=== PATIENT | female | born 1970 | race American Indian/Alaskan Native ===

== ENCOUNTER 2017-01-04 08:34 | Day surgery (SDC) | payer OTHER ==
[2016-12-31 10:15] VITALS: BMI 23.6
[2017-01-04] MEDS ORDERED: Lidocaine 1% Inj (20ml) ONE (11:57)
[2017-01-04] MEDS ORDERED: ceFAZolin 1 gm FROZEN Premix 1 GM/50 ML ML IVPB ONE (11:57)
[2017-01-04] MEDS ORDERED: Bupivacaine HCl 0.25% PF (10 ml) Inj ONE (11:57)
[2017-01-04] MEDS ORDERED: Lactated Ringer's 1,000 ML IV ONE (12:15)
[2017-01-04] MEDS ORDERED: Midazolam 2 MG/2 ML VIAL ONE (12:24)
[2017-01-04] MEDS ORDERED: Propofol 10 mg/ml Inj (20 ML) ONE ×2 (12:24→12:41)
[2017-01-04] MEDS ORDERED: Oxycodone/Acetaminophen 5/325 mg Tab PO PRN (13:08)
[2017-01-04] MEDS ORDERED: HYDROmorphone 1 mg/ml ISec ONE (13:13)
--- NOTE | 2017-01-04 14:15 | OP ---
PROCEDURE DATE: 01/04/2017 PREOPERATIVE DIAGNOSIS: Mass of the left breast. POSTOPERATIVE DIAGNOSIS: Mass of the left breast. PROCEDURE PERFORMED: Excisional biopsy mass of the left breast with adjacent tissue transfer closure . SURGEON: Elton Tejada MD ANESTHESIA: General. ESTIMATED BLOOD LOSS: 20 mL. POSTOPERATIVE CONDITION: Stable. PROCEDURE: The patient was taken to the operating room and placed in the supine position. An ellipt ical incision was made surrounding the left breast mass. It was dissected into the fascia and remove d. Bleeding was controlled using the Bovie. The mass was marked with a silk and sent for a specimen . Generous tissue flaps were raised using the Bovie and a greater than 30 square cm adjacent tissue transfer closure was performed by mobilizing the breast flaps and using multiple layers of Monocryl, subcuticular Monocryl, and glue. The patient tolerated procedure well, returned to recovery room in stable condition. Elton Tejada MD cc: [id number] TT: 01/04/2017 14:14:09 en
[2017-01-04 14:46] VITALS: BP 125/70; PULSE 61; RESP 18; TEMP 97.2; O2SAT 100
== END 2017-01-04 14:47 | disposition home or self-care (01) ==
LOC: C.SDS 08:34
PROVIDERS: ATTEND Surgery
DX: N63 Unspecified lump in breast (principal)
CPT/HCPCS: 19120; 88307; J0690; J1170; J2001; J2250; J2704; J3010; J7120